=== PATIENT | male | born 1985 | race African-American/Black ===

== ENCOUNTER 2019-03-01 15:46 | Inpatient (IN) ==
[2019-03-01] MEDS ORDERED: NS 1,000 ML IV ONE ×3 (16:28→22:12)
[2019-03-01 16:47] LABS: BE -0.2 mmoll (-3.0-3.0); BLOOD TYPE ARTERIAL; HCO3-(ACT) 24.6 mmoll (20.0-26.0); METHB 0.9 % (0.0-1.5); O2(CT) 19.8 mL/dL (15.0-23.0); O2HB 93.4 % (95.0-99.0); PCO2(98.6) 41 mmHg (35-45); PO2(98.6) 71 mmHg (60-100); SAMPLE BLOOD; SAO2 96.1 % (95.0-100.0); THB 15.1 g/dL (11.5-17.4); pH(98.6) 7.39 (7.35-7.45)
[2019-03-01 16:49] LABS: MODALITY ROOM AIR
[2019-03-01 16:50] LABS: ALLEN TEST YES
[2019-03-01 16:58] LABS: BASO# 0.03 X1000 (0.0-0.2); BASO% 0.3 % (0.0-0.8); EOS# 0.05 X1000 (0.0-0.7); EOS% 0.6 % (0.0-10.0); HEMOGLOBIN 14.6 g/dL (14.0-18.0); IMM GRAN# 0.01 X1000 (0.0-0.04); IMM GRAN% 0.1 % (0.0-0.5); LYMPH# 1.37 X1000 (1.2-3.4); LYMPH% 15.6 % (20.5-51.1); MCH 26.3 PG (27-31); MCV 77.5 FL (81-99); MONO% 9.1 % (1.7-9.3); MPV 13.2 FL (7.4-10.4); NEUT# 6.55 X1000 (1.4-6.5); NEUT% 74.3 % (42.2-75.2); PLT 174 X1000 (130-400); RBC 5.55 XMIL (4.7-6.1); RDW 13.1 % (11.5-14.5); WBC 8.81 X1000 (4.8-10.8)
[2019-03-01 17:11] LABS: MAGNESIUM 1.9 mg/dL (1.5-2.7)
[2019-03-01 17:15] LABS: HEMOGLOBIN A1C 11.7 % (4.8-6.0)
[2019-03-01 17:16] LABS: ESTIMATED GFR > 60
[2019-03-01 17:23] LABS: BILIRUBIN URINE NEGATIVE (NEGATIVE); BLOOD URINE NEGATIVE (NEGATIVE); CLARITY CLEAR (CLEAR); COLOR YELLOW; KETONE URINE 2+(Moderate) mg/dL (NEGATIVE); LEUKOCYTES URINE NEGATIVE (NEGATIVE); NITRITE URINE NEGATIVE (NEGATIVE); PH URINE 6.5; PROTEIN URINE NEGATIVE (NEGATIVE); UROBILINOGEN URINE NORMAL
[2019-03-01 17:23] LABS: AGAP 16; ALBUMIN 4.6 g/dL (3.5-5.0); ALKALINE PHOSPHATASE 78 U/L (32-122); BUN 12 mg/dL (8-22); CHLORIDE 86 mmol/L (98-107); COSMO 289; CREATININE 1.1 mg/dL (0.7-1.2); GLUCOSE 703 mg/dL (70-104); GOT 38 U/L (10-34); GPT 60 U/L (10-44); POTASSIUM 4.5 mmol/L (3.5-5.1); SODIUM 127 mmol/L (136-145); TCO2 25 mmol/L (25-35); TOTAL PROTEIN 8.4 g/dL (6.3-8.3)
[2019-03-01 17:59] LABS: URINE BACTERIA 1+ /HFP; URINE CAST NONE SEEN /LPF; URINE CRYSTAL NONE SEEN /HPF; URINE EPITHELIAL CELLS <10 /HPF (<10); URINE SOURCE CLEAN CATCH; URINE WBC <10 /HPF (<10); URINE YEAST NONE SEEN /HPF
--- NOTE | 2019-03-01 18:06 | EKG Report ---
Test Performed on : 03/01/2019 5:02:41 PM Test Reason : WEAKNESS Blood Pressure : / mmHG Vent. Rate : 084 BPM Atrial Rate : 084 BPM P-R Int : 188 ms QRS Dur : 088 ms QT Int : 350 ms P-R-T Axes : -09 070 -02 degrees QTc Int : 413 ms Normal sinus rhythm. Nonspecific ST and T wave abnormality Abnormal ECG No previous ECGs available Unconfirmed Result
[2019-03-01] MEDS ORDERED: HUMULIN R IV ONE (18:20)
--- NOTE | 2019-03-01 18:31 | PROVIDER DOCUMENTATION ---
This chart was entered by Xiao Clement Scribe, acting as scribe for Finn Jurado MD. HPI-General Adult - General Chief Complaint: Dizziness Stated Complaint: DIZZINESS Time Seen by Provider: 03/01/19 16:13 Source: patient Allergies/Adverse Reactions: Patient Allergies Allergy/AdvReac Type Severity Reaction Status Date / Time No Known Allergies Allergy Verified 03/01/19 16:02 Home Medications: Home Medication List Medication Instructions Recorded Confirmed Last Taken Type NK [No Home Medications] 03/01/19 03/01/19 Unknown History - History of Present Illness -Gen Adult Nature of Presenting Problems: Patient is a 34 year old male who presents with dizziness, increase in thirst, polyuria, weakness and blurred vision. States symptoms have been present for 2 weeks. Denies history of diabetes. Location of Pain/Injury: reports: none Quality of Pain: reports: none Severity: reports: mild Onset/Duration: reports: other (2 weeks) Timing: reports: still present Context/Activities at Onset: reports: light activity Associated Symptoms: reports: dizziness, EENT symptoms (blurred vision), genitourinary problems (polyuria), weakness, other (increase in thirst) Similar Symptoms Previously?: Yes Recently seen or treated by another doctor?: No Review of Systems - Adult - REVIEW OF SYSTEMS - ADULT Constitutional: reports: no symptoms reported. denies: chills, fever, fatique Eyes: reports: see HPI, blurred vision. denies: decreased vision, double vision Ears, Nose, Mouth & Throat: reports: no symptoms reported Cardiovascular: reports: no symptoms reported Respiratory: reports: no symptoms reported Gastrointestinal: reports: no symptoms reported Genitourinary: reports: no symptoms reported Musculoskeletal: reports: see HPI, muscle weakness. denies: back pain, neck pain Integumentary: reports: no symptoms reported Neurological: reports: see HPI, dizziness/vertigo (dizziness). denies: headache/migraines, seizure, syncope Psychiatric: reports: no symptoms reported Endocrine: reports: see HPI, increased thirst, polyuria Hematologic/Lymphatic: reports: no symptoms reported Allergic/Immunologic: reports: no symptoms reported All Other Systems: Reviewed and Negative Past History - Adult - PAST MEDICAL HISTORY-ADULT Review of Records: reports: Old Records Reviewed, Social history reviewed & non- contributory. Major Childhood Illnesses: reports: denies history Cardiovascular: reports: denies history Respiratory: reports: denies history Gastrointestinal: reports: denies history Obstetrical/Gynecological: reports: denies history Genitourinary: reports: denies history Musculoskeletal: reports: denies history Neurological: reports: denies history Endocrine/Immune: reports: denies history Other Conditions: reports: denies history - PRIOR SURGERIES/PROCEDURES Surgical/Procedure History: reports: reviewed, not pertinent - IMMUNIZATION STATUS Childhood Immunizations: See Nurse Assessment Flu Vaccine: See Nurse Assessment - FAMILY HISTORY Family History: reviewed, not pertinent - SOCIAL HISTORY Smoking: cigarettes, greater than 1 pack/day Provider spent 3-5 mins advising pt. on dangers of tobacco.: Discussed manners to quit use, and f/u contacts for add'l counseling. Substance Use: denies Living Situation: family Physical Exam-General - PHYSICAL EXAM-ADULT Initial Vital Signs Reviewed: Yes - CONSTITUTIONAL General Appearance: alert, no apparent distress, obese. negative: lethargic - HEAD, EARS, NOSE, MOUTH & THROAT HENMT: normocephalic/atraumatic, moist mucous membranes. negative: angioedema - RESPIRATORY Respiratory: chest non-tender, lungs clear, normal breath sounds. negative: crackles, rhonchi - CARDIOVASCULAR Cardiovascular: normal peripheral pulses, regular rate, rhythm. negative: tachycardia - GASTROINTESTINAL (ABDOMEN) Abdominal Exam: normal bowel sounds, non tender, soft. negative: guarding, rebound - MUSCULOSKELETAL Extremity: non-tender, normal inspection. negative: deformity, erythema, swelling - SKIN Integumentary: normal color, normal turgor, warm/dry. negative: diaphoresis, ecchymosis, jaundice - NEUROLOGIC Neurologic: grossly normal. negative: aphasia, facial droop - PSYCHIATRIC Psych/Mental Status: normal mood/affect, oriented x 3. negative: anxious Progress - PLAN OF CARE/RESULTS Progress/Plan/Lab Results: Vital Signs - 8 hr 03/01/19 15:55 Temperature 98.1 F Pulse Rate 92 H Respiratory Rate 18 Blood Pressure 139/90 O2 Sat by Pulse Oximetry 98 Laboratory Results - last 24 hr 03/01/19 16:01 POC Glucose 500 H Orders Category Date Time Status Saline Loc NOW Care 03/01/19 16:26 Active A1C HGB W EST AVG GLUCOSE [CHEM] Stat Lab 03/01/19 16:29 Ordered ABG [RESP] Routine Lab 03/01/19 16:28 Ordered CBC WITH ELECTRONIC DIFF [HEME] Stat Lab 03/01/19 16:27 Uncollected COMPREHENSIVE METABOLIC PANEL [CHEM] Stat Lab 03/01/19 16:27 Ordered LACTATE, PLASMA [CHEM] Stat Lab 03/01/19 16:27 Uncollected LIPASE [CHEM] Stat Lab 03/01/19 16:27 Uncollected MAGNESIUM [CHEM] Stat Lab 03/01/19 16:[address] W/POSS RFLX CULT [URINALYSIS] Stat Lab 03/01/19 16:28 Uncollected 0.9% Sodium Chloride Inj [Ns] 1,000 ml Med 03/01/19 16:28 Active IV 999 mls/hr EKG [EKG] Stat Ther 03/01/19 16:26 Ordered Result Diagrams: 03/01/19 16:40 03/01/19 16:40 - EKG 1 Time of EKG reading by physician:: 17:02 EKG Read and Signed by:: Finn Jurado EKG Interpretation (*Must complete 3 of following elements*): Abnormal Rate: 84 Rhythm: normal sinus rhythm [place]: normal [place] Interval: normal Comments: nonspecific ST and T wave abnormality. - CONSULTS/PCP/HOSPITALIST Notification #1 *Consult/PCP/Hospitalist*: DR Barb PARSONS Time Discussed: 18:30 Consult Disposition: Admit (WRITE ORDERS PLEASE.) Departure - Departure Date of Disposition Decision: 03/01/19 Time of Disposition Decision: 18:30 DIAGNOSIS: Diabetes mellitus, new onset, Hyperglycemia, Lactic acidosis Disposition: ADMITTED INPATIENT 09 Certified Medical Emergency: Emergent Condition: Fair Referrals and Follow-Ups: None,PCP [Primary Care Provider] - - Critical Care Note This patient required my direct & personal management of CC.: No Attestation - Physician/ JOANNE Attestation The physician spent face to face time with patient:: Yes Advanced Practice Provider documentation review:: Supervising physician onsite and consulted in the evaluation and care of this patient. The physician did have a face to face encounter with the patient. This chart was documented by the indicated scribe, (Xiao Clement Scribe) and accurately reflects the services I performed and decisions made by me, Finn Jurado MD, as attested by the provider's signature.
[2019-03-01] MEDS ORDERED: GLUCOPHAGE PO ONE (18:47)
[2019-03-01] MEDS ORDERED: HUMULIN R (PARKWAY) SUBQ ONE (20:33)
[2019-03-01] MEDS ORDERED: ZOFRAN IV PRN (20:33)
[2019-03-01] MEDS: HUMALOG (PARKWAY) SUBQ SCH (22:31)
[2019-03-01] MEDS: LANTUS INSULIN SUBQ SCH (22:41)
[2019-03-02] MEDS: NS 1,000 ML IV SCH ×3 (05:04→14:14)
[2019-03-02 06:06] LABS: BASO# 0.04 X1000 (0.0-0.2); BASO% 0.5 % (0.0-0.8); EOS# 0.21 X1000 (0.0-0.7); EOS% 2.7 % (0.0-10.0); HEMATOCRIT 41.3 % (42.0-52.0); HEMOGLOBIN 13.8 g/dL (14.0-18.0); IMM GRAN# 0.01 X1000 (0.0-0.04); IMM GRAN% 0.1 % (0.0-0.5); LYMPH# 1.99 X1000 (1.2-3.4); LYMPH% 25.2 % (20.5-51.1); MCH 26.1 PG (27-31); MCHC 33.4 g/dL (33-37); MCV 78.2 FL (81-99); MONO# 0.82 X1000 (0.11-0.59); MONO% 10.4 % (1.7-9.3); NEUT# 4.82 X1000 (1.4-6.5); NEUT% 61.1 % (42.2-75.2); PLT 172 X1000 (130-400); RBC 5.28 XMIL (4.7-6.1); RDW 13.3 % (11.5-14.5); WBC 7.89 X1000 (4.8-10.8)
[2019-03-02] MEDS: HUMALOG (PARKWAY) SUBQ SCH ×5 (06:21→21:19)
[2019-03-02 06:51] LABS: AGAP 12; ALBUMIN 3.9 g/dL (3.5-5.0); BUN 12 mg/dL (8-22); CALCIUM 9.4 mg/dL (8.8-10.2); CHLORIDE 98 mmol/L (98-107); CHOLESTEROL 200 mg/dL (0-200); COSMO 282; ESTIMATED GFR > 60; GLUCOSE 318 mg/dL (70-104); HDL 30 mg/dL (35-55); LDL 133 mg/dL; PHOSPHORUS 3.2 mg/dL (2.7-4.5); SODIUM 135 mmol/L (136-145); TCO2 25 mmol/L (25-35); TRIGLYCERIDES 186 mg/dL (39-160); VLDL 37 mg/dL
[2019-03-02 06:52] LABS: ALBUMIN 3.8 g/dL (3.5-5.0); ALKALINE PHOSPHATASE 62 U/L (32-122); DIRECT BILIRUBIN < 0.20 mg/dL (0.00-0.20); GOT 40 U/L (10-34); GPT 53 U/L (10-44); TOTAL PROTEIN 7.2 g/dL (6.3-8.3)
[2019-03-02] MEDS ORDERED: TYLENOL PO PRN (08:22)
--- NOTE | 2019-03-02 09:41 | Diag Imaging Result Doc PS360 ---
EXAM: US ABDOMEN-COMPLETE - 03/02/2019 HISTORY: transaminitis TECHNIQUE: Ultrasound abdomen COMPARISON: None. FINDINGS: The liver appears diffusely echodense suggesting fatty infiltration. There is no focal liver lesion identified. Doppler image shows hepatopedal flow in the portal vein. The spleen is lower range of normal in size. There is no ascites seen. The gallbladder is visualized and demonstrates no abnormalities. There is no evidence of gallstones. The technologist reports negative sonographic Lopez's sign. The common bile duct is normal caliber at 3 mm. There are artifacts from bowel gas and/or body habitus which limit detail at the pancreas, but visualized portions of the pancreas are unremarkable. There are no abnormalities of the bilateral kidneys identified. Abdominal aorta and IVC appear normal caliber. IMPRESSION: Apparent fatty infiltration of liver. No evidence of focal liver lesion. No other visible abnormality. No evidence of gallstones. Electronically signed by Uriah Bello 03/02/2019 9:39 AM
[2019-03-02] MEDS: GLUCOPHAGE PO SCH ×2 (11:03→16:48)
[2019-03-02] MEDS: LANTUS INSULIN SUBQ SCH ×2 (11:03→21:19)
--- NOTE | 2019-03-02 11:39 | HISTORY AND PHYSICAL ---
PRIMARY CARE PROVIDER: No one. CHIEF COMPLAINT: Blurred vision, nausea, excessive urination, and thirst. HISTORY OF PRESENT ILLNESS: Mr. Too Chisholm is a 34-year-old male with a medical history of migraines in his childhood but has not had them years, associated those with having sinuses and seasonal allergies. States that for at least a month, he has been having fatigue and generalized weakness, some nausea without emesis. Around 2 weeks ago, he started noticing blurred vision. Yesterday around 12 noon, his vision became so blurred that he was unable to see his son while he was at the house watching him alone and also noticed that he had per drinking a whole lot more water, having more urination frequency. His diet is essentially anything that he wants to eat. States he is eating a whole lot of carbs and breads but not really sweets. Essentially does not have an active lifestyle other than running around the house after his toddler child and actually even felt like maybe he had been having symptoms of diabetes, had been researching it prior to even coming here. So upon presentation, he was found to have a blood glucose level of 703. He had a hemoglobin A1c of 11.7, of course his sodium was a little low, and the urine had ketones and glucose. He was given IV insulin and fluids, starting on sliding scale insulin, diabetic diet, and his blood glucose levels have much improved. PAST MEDICAL HISTORY: 1. Migraines as a child. 2. Seasonal allergies. 3. Morbid obesity with a BMI of 48.2. SURGICAL HISTORY: None. SOCIAL HISTORY: He has tried cigarettes in the past but does not smoke. He has never been a smoker. He drinks 1 to 2 beers per day. Smokes marijuana about once every 2 months, with the last time being Tuesday. Currently works at [employer]. Lives at home with his and his toddler son. FAMILY HISTORY: Father and maternal grandmother both had diabetes. Maternal grandmother had lupus. ALLERGIES: No known drug allergies. HOME MEDICATIONS: None. REVIEW OF SYSTEMS: Fourteen point review of systems are complete and all are negative except for those mentioned above HPI. PHYSICAL EXAMINATION: VITAL SIGNS: Temperature 98.1 degrees, heart rate 83, respiratory rate 18, blood pressure 130/64, O2 saturation 96% on room air. GENERAL: Mr. Chisholm is a 34-year-old male, he is in no acute distress. He is able to answer questions appropriately. HEENT: Atraumatic, normocephalic. Pupils equal, round, reactive to light. Extraocular movements intact. Mucous membranes are moist. NECK: Trachea midline. CARDIOVASCULAR: S1-S2, regular rate and rhythm. No rubs, gallops, murmurs. No lower extremity edema. Plus 2 dorsalis and radial pulses. Negative for JVD or carotid bruits. PULMONARY: Clear to auscultation. Bilateral breath sounds. No accessory muscle use or work of breathing noted. Tolerating room air. GI: Soft, nontender, nondistended. Positive bowel sounds x4, obese. EXTREMITIES: Moves all extremities equally. Full range of motion. NEUROLOGIC: A and O x3. Follows commands. Sensory is intact. SKIN: Warm, dry, intact. LABORATORY DATA: White blood cells 7000, hemoglobin 13, hematocrit 41, platelet count 172,000. Sodium 135, potassium 4.0, BUN 12, creatinine is 1.0, glucose 293. Hemoglobin A1c is 11.7. Triglycerides is 186, total cholesterol was 200. Bilirubin 0.40, AST 40, ALT 53, albumin 3.8. He did come in with a lactate of 2.5, but he got fluids. TSH 2.09, free T4 is 1.13. Urine with 2+ ketones, 3+ glucose, there was small acetone. IMAGING: Abdominal ultrasound showed fatty infiltration of the liver. EKG normal sinus rhythm, rate 84, QTC 413. ASSESSMENT/PLAN: 1. New onset diabetes mellitus type 2 with uncontrolled hyperglycemia. Started on sliding scale insulin, pattern blood glucoses, and will need to have education on diabetic diet. Also educated on the issues of what can happen when the diabetes is not controlled. 2. Hepatic steatosis or fatty liver. Will likely need to be started on a statin and education on diet and exercise and glucose control. 3. Marijuana abuse. Cessation discussed. 4. Complaints of nausea. Antiemetics given. 5. Deep venous thrombosis with SCDs. Dictated by ERNESTO Mccartney for Michi Flaherty MD Addendum: Patient seen and examined by myself. Agree with ERNESTO note. It reflects my assessment and plan. Patient is admitted to hospital for new onset diabetes. Blood sugar is above 700. Will start IV fluids and Lantus. Will check lipid panel and will go from there. cc: ERNESTO Mccartney MD MTDD
[2019-03-02] MEDS: LIPITOR PO SCH (21:18)
[2019-03-03] MEDS: NS 1,000 ML IV SCH ×3 (00:01→15:26)
[2019-03-03 05:33] LABS: BASO# 0.03 X1000 (0.0-0.2); BASO% 0.4 % (0.0-0.8); EOS# 0.12 X1000 (0.0-0.7); EOS% 1.7 % (0.0-10.0); HEMATOCRIT 40.3 % (42.0-52.0); HEMOGLOBIN 13.3 g/dL (14.0-18.0); IMM GRAN# 0.01 X1000 (0.0-0.04); IMM GRAN% 0.1 % (0.0-0.5); LYMPH# 1.89 X1000 (1.2-3.4); LYMPH% 27.3 % (20.5-51.1); MCH 26.2 PG (27-31); MCV 79.5 FL (81-99); MONO% 10.1 % (1.7-9.3); MPV 12.7 FL (7.4-10.4); NEUT# 4.17 X1000 (1.4-6.5); NEUT% 60.4 % (42.2-75.2); PLT 158 X1000 (130-400); RBC 5.07 XMIL (4.7-6.1); RDW 13.7 % (11.5-14.5); WBC 6.92 X1000 (4.8-10.8)
[2019-03-03 06:03] LABS: AGAP 9; ALBUMIN 3.6 g/dL (3.5-5.0); ALKALINE PHOSPHATASE 54 U/L (32-122); BUN 12 mg/dL (8-22); CHLORIDE 98 mmol/L (98-107); COSMO 274; DIRECT BILIRUBIN < 0.20 mg/dL (0.00-0.20); ESTIMATED GFR > 60; GLUCOSE 299 mg/dL (70-104); GOT 58 U/L (10-34); GPT 63 U/L (10-44); MAGNESIUM 1.6 mg/dL (1.5-2.7); PHOSPHORUS 3.4 mg/dL (2.7-4.5); POTASSIUM 4.2 mmol/L (3.5-5.1); SODIUM 131 mmol/L (136-145); TCO2 24 mmol/L (25-35); TOTAL PROTEIN 6.7 g/dL (6.3-8.3)
[2019-03-03] MEDS: HUMALOG (PARKWAY) SUBQ SCH ×4 (06:36→21:24)
[2019-03-03] MEDS: LANTUS INSULIN SUBQ SCH ×2 (09:57→21:23)
[2019-03-03] MEDS: GLUCOPHAGE PO SCH ×2 (09:57→18:22)
--- NOTE | 2019-03-03 11:47 | DISCHARGE SUMMARY ---
ADMISSION DATE: 03/01/2019 DISCHARGE DATE: 03/03/2019 ADMISSION DIAGNOSES: 1. New onset diabetes mellitus type 2 with uncontrolled hyperglycemia. 2. Hepatic steatosis. 3. Marijuana abuse. 4. Nausea. DISCHARGE DIAGNOSES: 1. New onset diabetes mellitus type 2. 2. Hepatic steatosis. 3. Marijuana abuse. 4. Nausea. CONSULTATIONS: None other than Nutrition consult. SURGERIES AND PROCEDURES: None. HOSPITAL COURSE: Mr. Too Chisholm is a 34-year-old male with complaints of blurred vision, nausea, excessive urination and thirst. Otherwise, he really had no medical history other than morbid obesity and seasonal allergies. He stated that for at least a month he had been having some fatigue with weakness, nausea without emesis and 2 weeks prior to admission started having blurred vision. At 12 noon the day prior to admission he had blurred vision so severe he was unable to watch his son, so he called his and came to the emergency department. What they had both noticed was that he was having excessive thirst, drinking more water and having urinary frequency. Diet consisted of anything that he wanted to eat, mostly high in carbohydrates, but not sweets. Had a sedentary lifestyle and even felt like he may have been having symptoms of diabetes, was actually researching it prior to coming here. He was found to have a blood glucose level of 703, a hemoglobin A1c of 11.7 and pseudohyponatremia along with it. The urine did have ketones, too. He was given IV insulin and fluids and started on sliding scale insulin, diabetic diet. Blood glucose levels did improve. He had nutritional consult to educate on the new onset diabetes. He had lipid panel performed that showed elevation in his triglycerides at 186, his total cholesterol is 200. He was initiated on a statin at that time. The lactate was elevated as well, but most likely resolved. It looks like we were only able to really get his blood glucose level down to the 200s. The patient is actually requesting to go home. He does not want to stay 1 more day to get his blood glucose levels further down. Insulin included 20 units of Lantus twice a day, sliding scale insulin and metformin were added and of course, Lipitor. DISCHARGE VITAL SIGNS: Temperature 97.5 degrees, heart rate 82, respiratory rate 16, blood pressure 158/97, O2 saturation 100% on room air. LABORATORY DATA: White blood cells 6000, hemoglobin 13, hematocrit 40, platelet count 158,000. Sodium 131, potassium 4.2, BUN 12, creatinine is 1.0, glucose 299. Hemoglobin A1c is 11.7. Calcium 9.0. Phosphorus 3.4. Magnesium 1.6. Bilirubin 0.40, AST 58, ALT 63. Albumin 3.6. Triglycerides 186, cholesterol 200. TSH 2.09, free T4 1.13. He had small acetone. He had ketones and glucose in the urine as well. IMAGING: He had an abdominal ultrasound, apparently had a fatty infiltration of the liver or hepatic steatosis. EKG shows sinus rhythm, rate 84, QTc 413. DISCHARGE DIET: Diabetic. DISCHARGE ACTIVITY: As tolerated. DISCHARGE MEDICATIONS: Metformin 500 mg tablet, take half a tablet p.o. twice a day for a week then take 1 tablet p.o. twice a day continuously, 70/30 insulin 20 units subcutaneous twice a day. 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 DISCHARGE INSTRUCTIONS: Notify MD or return to the emergency department immediately for any of the following: Excessive thirst, urination, blood sugars that remain outside of prescribed ranges, any cuts or sore to feet that do not heal. Keep all followup appointments. Take all prescribed medications as directed. Monitor sugars as directed and that would be to take his blood glucose levels at least once daily in the mornings. Return to the emergency department immediately for any new or worsening symptoms. Call the physicians hotline to obtain a primary care provider. DISCHARGE DISPOSITION: Home. Dictated by ERNESTO Mccartney for Michi Flaherty MD Addendum: Patient seen and examined by myself. Agree with ERNESTO note. It reflects my assessment and plan. Patient is discharged from hospital in stable condition. Will be recommended to be seen by PCP in 2 to 3 week. List of PCP who are accepting new patients will be provided. cc: ERNESTO Mccartney MD [facility]
[2019-03-03] MEDS: LIPITOR PO SCH (21:23)
[2019-03-04 05:41] LABS: BASO# 0.04 X1000 (0.0-0.2); BASO% 0.6 % (0.0-0.8); EOS# 0.18 X1000 (0.0-0.7); EOS% 2.5 % (0.0-10.0); HEMATOCRIT 37.3 % (42.0-52.0); HEMOGLOBIN 12.3 g/dL (14.0-18.0); IMM GRAN# 0.02 X1000 (0.0-0.04); IMM GRAN% 0.3 % (0.0-0.5); LYMPH# 1.93 X1000 (1.2-3.4); LYMPH% 26.8 % (20.5-51.1); MCH 26.2 PG (27-31); MCV 79.4 FL (81-99); MONO# 0.84 X1000 (0.11-0.59); MONO% 11.7 % (1.7-9.3); MPV 12.5 FL (7.4-10.4); NEUT# 4.19 X1000 (1.4-6.5); NEUT% 58.1 % (42.2-75.2); PLT 155 X1000 (130-400); RDW 13.7 % (11.5-14.5)
[2019-03-04] MEDS: NS 1,000 ML IV SCH ×2 (06:04→06:14)
[2019-03-04] MEDS: HUMALOG (PARKWAY) SUBQ SCH (06:15)
[2019-03-04 06:17] LABS: AGAP 9; ALBUMIN 3.5 g/dL (3.5-5.0); ALKALINE PHOSPHATASE 50 U/L (32-122); BUN 10 mg/dL (8-22); CALCIUM 8.8 mg/dL (8.8-10.2); CHLORIDE 103 mmol/L (98-107); COSMO 276; CREATININE 0.9 mg/dL (0.7-1.2); ESTIMATED GFR > 60; GLUCOSE 216 mg/dL (70-104); GOT 51 U/L (10-34); GPT 68 U/L (10-44); PHOSPHORUS 3.2 mg/dL (2.7-4.5); POTASSIUM 3.8 mmol/L (3.5-5.1); SODIUM 135 mmol/L (136-145); TCO2 24 mmol/L (25-35); TOTAL PROTEIN 6.5 g/dL (6.3-8.3)
[2019-03-04 06:30] LABS: DIRECT BILIRUBIN < 0.20 mg/dL (0.00-0.20)
[2019-03-04] MEDS: GLUCOPHAGE PO SCH (08:05)
[2019-03-04] MEDS: LANTUS INSULIN SUBQ SCH (08:06)
[2019-03-04 08:55] VITALS: BP 137/95
--- NOTE | 2019-03-04 15:46 | DISCHARGE SUMMARY ---
ADMISSION DATE: 03/01/2019 DISCHARGE DATE: 03/04/2019 ADDENDUM: The patient was discharged yesterday but because his blood sugar has been a little bit elevated, he preferred to be monitored one more day. He was feeling fine, no nausea, no vomiting. His blood sugars today are below 200 so he is going to be discharged in stable condition. We are going to provide prescriptions for insulin 70/30, and we are going to provide as well glucometer strips and list of primary care providers for him. cc: Michi Flaherty MD
== END 2019-03-04 10:10 | disposition home or self-care (01) | DRG 638 ==
LOC: P.MEDSURG 15:46 → P.ED 15:46 → UNDODISOB 03-04 10:10
PROVIDERS: ATTEND Internal Medicine